=== PATIENT | male | born 2000 | race Caucasian/White ===

== ENCOUNTER 2022-10-19 18:37 | Emergency (ER) | payer BC, MEDICAID, OTHER ==
[~2022-10-19] VITALS: Ht 182.9 cm; Wt 75.7 kg
[2022-10-19] MEDS ORDERED: TETRACAINE HCL 0.5% OPTH(EYE) SOLN 4ML RIGHTEYE ONE (20:15)
[2022-10-19] MEDS ORDERED: FLUORESCEIN SOD OPTH TEST STRIP RIGHTEYE ONE (20:15)
[2022-10-19 20:24] VITALS: BP 132/90
[2022-10-19] MEDS ORDERED: ERY05OO OP (20:33)
== END 2022-10-19 20:42 | disposition home or self-care (01) ==
LOC: ER 18:39
DX: S05.01XA Injury of conjunctiva and corneal abrasion without foreign body, right eye, initial encounter (principal); X58.XXXA Exposure to other specified factors, initial encounter; Y93.89 Activity, other specified; Y92.89 Other specified places as the place of occurrence of the external cause; Y99.8 Other external cause status